=== PATIENT | female | born 2000 ===

== ENCOUNTER 2021-09-27 09:07 | Day surgery (SDC) | payer OTHER | END 2021-09-27 17:40 | disposition home or self-care (01) | LOC: CIR.AMB 09:07 | PROVIDERS: ATTEND Student in an Organized Health Care Education/Training Program | DX: D27.0 Benign neoplasm of right ovary (principal); Z20.822 Contact with and (suspected) exposure to COVID-19; Z86.16 Personal history of COVID-19; E16.2 Hypoglycemia, unspecified ==